=== PATIENT | female | born 1960 | race Caucasian/White ===

== ENCOUNTER → 2018-01-19 | Outpatient (CLI) | payer BC | LOC: ULTRA 08:20 | DX: E01.0 Iodine-deficiency related diffuse (endemic) goiter (principal); R22.1 Localized swelling, mass and lump, neck ==

== ENCOUNTER → 2018-04-12 | Outpatient (CLI) | payer BC | LOC: ULTRA 14:03 | DX: R10.9 Unspecified abdominal pain (principal) ==

== ENCOUNTER → 2018-04-13 | Outpatient (CLI) | payer BC | LOC: CAT 12:32 → NUC 12:32 | DX: R10.9 Unspecified abdominal pain (principal); R14.0 Abdominal distension (gaseous); R11.0 Nausea; Z90.89 Acquired absence of other organs ==

== ENCOUNTER → 2018-05-22 | Outpatient (CLI) | payer BC | LOC: RAD 16:06 | DX: R91.8 Other nonspecific abnormal finding of lung field (principal); R93.8 Abnormal findings on diagnostic imaging of other specified body structures ==

== ENCOUNTER → 2019-08-07 | Outpatient (CLI) | payer BC | LOC: RAD 09:27 | DX: M06.9 Rheumatoid arthritis, unspecified (principal); Z88.8 Allergy status to other drugs, medicaments and biological substances; Z88.0 Allergy status to penicillin; Z88.2 Allergy status to sulfonamides ==